=== PATIENT | female | born 1995 | race African-American/Black ===

== ENCOUNTER 2017-02-19 07:16 | Emergency (ER) | payer SELFPAY ==
[~2017-02-19] VITALS: Ht 172.7 cm; Wt 62.6 kg
[2017-02-19 07:50] VITALS: BP 142/92
== END 2017-02-19 08:47 | disposition home or self-care (01) ==
LOC: ER 07:16
DX: S60.042A Contusion of left ring finger without damage to nail, initial encounter (principal); X58.XXXA Exposure to other specified factors, initial encounter; Y93.61 Activity, american tackle football; Y92.89 Other specified places as the place of occurrence of the external cause; Y99.8 Other external cause status